=== PATIENT | female | born 1945 ===

== ENCOUNTER 2023-09-20 13:23 | Outpatient (CLI) | payer OTHER ==
[~2023-09-20 13:23] MED LIST: CIPRO500 MG; HYDROCHLOROTHIA25 MG; TRAMADOL HCL-AP1 TAB
== END 2023-09-20 13:29 | disposition home or self-care (01) ==
LOC: SONOGRAMA 13:23
PROVIDERS: ATTEND Pathology Anatomic Pathology & Clinical Pathology
DX: D34 Benign neoplasm of thyroid gland (principal); E04.9 Nontoxic goiter, unspecified